=== PATIENT | female | born 1980 | race Caucasian/White ===

== ENCOUNTER 2017-05-27 19:01 | Emergency (ER) | payer OTHER ==
[~2017-05-27] VITALS: Ht 157.5 cm; Wt 55.8 kg
[2017-05-27] MEDS ORDERED: AUGMENTIN 875-1 EACH PO (20:06)
== END 2017-05-27 20:12 | disposition home or self-care (01) ==
LOC: ED 19:01
PROC: 0HQ1XZZ Repair Face Skin, External Approach (ICD-10-PCS; principal; 2017-05-27)
DX: S01.451A Open bite of right cheek and temporomandibular area, initial encounter (principal); S01.411A Laceration without foreign body of right cheek and temporomandibular area, initial encounter; Z23 Encounter for immunization; Z88.8 Allergy status to other drugs, medicaments and biological substances; Z88.1 Allergy status to other antibiotic agents; Z88.6 Allergy status to analgesic agent; Z88.5 Allergy status to narcotic agent; W54.0XXA Bitten by dog, initial encounter
CPT/HCPCS: 12011; 90471; 90715; 99282

== ENCOUNTER 2020-12-21 10:10 | Emergency (ER) | payer OTHER ==
[~2020-12-21] VITALS: Ht 157.5 cm; Wt 55.8 kg
[~2020-12-21 10:10] MED LIST: AUGMENTIN 875-1 EACH PO
== END 2020-12-21 11:11 | disposition home or self-care (01) ==
LOC: ED 10:10
PROC: 0HQGXZZ Repair Left Hand Skin, External Approach (ICD-10-PCS; principal; 2020-12-21)
DX: S61.412A Laceration without foreign body of left hand, initial encounter (principal); Z90.89 Acquired absence of other organs; Z88.8 Allergy status to other drugs, medicaments and biological substances; Z88.1 Allergy status to other antibiotic agents; Z88.6 Allergy status to analgesic agent; Z88.5 Allergy status to narcotic agent; Z23 Encounter for immunization; W45.8XXA Other foreign body or object entering through skin, initial encounter
CPT/HCPCS: 12001; 90471; 90715; 99282

== ENCOUNTER 2022-09-27 04:45 | Emergency (ER) | payer OTHER ==
[~2022-09-27] VITALS: Ht 157.5 cm; Wt 48.9 kg
[2022-09-27] MEDS ORDERED: EPIPEN 2-P0.3 MG/0.3 IM (05:19)
[2022-09-27] MEDS ORDERED: PREDNISONE20 MG PO (06:04)
[2022-09-27] MEDS ORDERED: PEPCID20 MG PO (06:04)
[2022-09-27 07:02] VITALS: BP 95/68
== END 2022-09-27 07:04 | disposition home or self-care (01) ==
LOC: ED 04:45
DX: L50.9 Urticaria, unspecified (principal); Z79.1 Long term (current) use of non-steroidal anti-inflammatories (NSAID); Z79.899 Other long term (current) drug therapy
CPT/HCPCS: 96374; 96375; 99282-25; J0171; J1100; J1200; J7121